=== PATIENT | male | born 1970 | race Two or more races ===

== ENCOUNTER 2024-04-06 12:11 | Observation (INO) | payer MEDICAID ==
[2024-04-06] MEDS ORDERED: Sodium Chloride 0.9% 10 ML Syringe FLUSH PRN (12:25)
[2024-04-06 12:35] LABS: BASOPHILS ABSOLUTE AUTO 0.02 10^3/uL (0.00-0.10); BASOPHILS PERCENT AUTO 0.4 % (0.0-1.0); EOSINOPHILS ABSOLUTE AUTO 0.01 10^3/uL (0.10-0.30); EOSINOPHILS PERCENT AUTO 0.2 % (1.0-3.0); HEMOGLOBIN 12.9 g/dL (13.0-17.0); IMMATURE GRAN ABSOLUTE AUTO 0.01 10^3/uL (0.00-0.50); IMMATURE GRAN PERCENT AUTO 0.2 % (0.0-5.0); LYMPHOCYTES ABSOLUTE AUTO 0.74 10^3/uL (1.00-4.00); LYMPHOCYTES PERCENT AUTO 15.6 % (20.0-40.0); MEAN CORPUSCULAR HEMOGLOBIN 24.1 pg (27.0-31.0); MEAN CORPUSCULAR HGB CONC 31.5 g/dL (32.0-36.0); MEAN CORPUSCULAR VOLUME 76.6 fL (82.0-92.0); MEAN PLATELET VOLUME 8.1 fL (7.4-10.4); MONOCYTES ABSOLUTE AUTO 0.42 10^3/uL (0.10-0.80); MONOCYTES PERCENT AUTO 8.8 % (2.0-8.0); NEUTROPHILS ABSOLUTE AUTO 3.55 10^3/uL (2.50-7.00); NEUTROPHILS PERCENT AUTO 74.8 % (50.0-70.0); PLATELET COUNT,PLT 152 10^3/uL (150-400); RED BLOOD CELL COUNT 5.35 10^6/uL (4.50-6.00); WHITE BLOOD CELL COUNT,WBC 4.75 10^3/uL (5.00-10.00)
[2024-04-06] MEDS: Sodium Chloride 0.9% 1,000 ML IV ONE (12:45)
[2024-04-06 12:58] LABS: ALANINE AMINOTRANSFERASE,ALT 48 U/L (14-63); ALBUMIN 3.29 g/dL (3.40-5.00); ALKALINE PHOSPHATASE 136 U/L (46-116); ANION GAP 13.7 mmol/L (5-15); ASPARTATE AMNIOTRANSFERASE,AST 68 U/L (15-37); BILIRUBIN TOTAL 1.4 mg/dL (0.2-1.0); BLOOD UREA NITROGEN,BUN 2 mg/dL (7-18); CALCIUM 8.6 mg/dL (8.7-10.3); CARBON DIOXIDE,CO2 25.7 mmol/L (21.0-32.0); CHLORIDE,CL 90 mmol/L (98-107); CREATININE 0.74 mg/dL (0.51-1.17); ESTIMATED GFR 108 mL/min (>=60); ETHANOL BLOOD MEDICAL < 3 mg/dL (NOT DETECTED); GLUCOSE RANDOM 125 mg/dL (70-140); POTASSIUM,K 3.4 mmol/L (3.5-5.1); PROTEIN TOTAL,TP 8.5 g/dL (6.4-8.2); SODIUM,NA 126 mmol/L (136-145)
[2024-04-06] MEDS: LORazepam 2 MG/ML SDV IVPUSH ONE (13:40)
[2024-04-06] MEDS: Enalaprilat 1.25 MG/ML SDV IVPUSH ONE (14:55)
[2024-04-06 15:34] LABS: APPEARANCE,URINE CLEAR (CLEAR); BILIRUBIN,URINE NEGATIVE (NEGATIVE); COLOR,URINE YELLOW (YELLOW); GLUCOSE,URINE NEGATIVE (NEGATIVE); KETONES,URINE NEGATIVE (NEGATIVE); LEUKOCYTE ESTERASE,URINE NEGATIVE (NEGATIVE); NITRITE,URINE NEGATIVE (NEGATIVE); OCCULT BLOOD,URINE SMALL (NEGATIVE); PH,URINE 6.5 (5.0-9.0); PROTEIN,URINE 100 mg/dL (NEGATIVE)
[2024-04-06 15:42] LABS: BACTERIA,URINE RARE /HPF (NONE TO FEW); EPITHELIAL CELLS,URINE RARE /LPF; RBC,URINE 0-5 /HPF (0-5); WBC,URINE 0-5 /HPF (0-5)
[2024-04-06 15:45] LABS: AMPHETAMINES SCREEN, URINE NEGATIVE (NEGATIVE); BENZODIAZEPINES SCREEN,URINE POSITIVE (NEGATIVE); COCAINE METABOLITES,URINE POSITIVE (NEGATIVE); METHAMPHETAMINES SCREEN, URINE NEGATIVE (NEGATIVE); PCP SCREEN,URINE NEGATIVE (NEGATIVE); THC SCREEN,URINE 50 NG/ML POSITIVE (NEGATIVE)
[2024-04-06 15:46] LABS: BARBITURATE SCREEN,URINE NEGATIVE (NEGATIVE); METHADONE SCREEN, URINE NEGATIVE (NEGATIVE); OXYCODONE SCREEN,URINE NEGATIVE (NEGATIVE); TCA SCREEN,URINE NEGATIVE (NEGATIVE)
[2024-04-06 16:52] LABS: LACTIC ACID 1.2 mmol/L (0.4-2.0)
[2024-04-06] MEDS ORDERED: RIFAXIMIN 200 MG PO SCH (17:00)
[2024-04-06] MEDS ORDERED: Ondansetron 4 MG/2 ML SDV IV PRN (17:13)
[2024-04-06] MEDS ORDERED: Acetaminophen 325 MG Tab PO PRN (17:13)
[2024-04-06] MEDS: Sodium Chloride 0.9% 1,000 ML IV SCH (18:39)
[2024-04-06] MEDS: Diazepam 5 MG Tab PO SCH (18:39)
[2024-04-06] MEDS ORDERED: RIFAXIMIN PO SCH (21:00)
[2024-04-06] MEDS: Carvedilol 6.25 MG Tab PO SCH (21:34)
[2024-04-06] MEDS: Thiamine 100 MG Tab PO SCH (21:34)
[2024-04-06] MEDS: Lactulose Soln 10 GM/15 ML 30 ML UD Cup PO SCH (21:53)
[2024-04-07 07:14] LABS: HEMATOCRIT 35.2 % (40.0-52.0); HEMOGLOBIN 10.8 g/dL (13.0-17.0); MEAN CORPUSCULAR HEMOGLOBIN 24.2 pg (27.0-31.0); MEAN CORPUSCULAR HGB CONC 30.7 g/dL (32.0-36.0); MEAN CORPUSCULAR VOLUME 78.9 fL (82.0-92.0); MEAN PLATELET VOLUME 8.7 fL (7.4-10.4); PLATELET COUNT,PLT 144 10^3/uL (150-400); RED BLOOD CELL COUNT 4.46 10^6/uL (4.50-6.00); RED CELL DISTRIBUTION WIDTH 17.4 % (11.5-14.5); WHITE BLOOD CELL COUNT,WBC 4.91 10^3/uL (5.00-10.00)
[2024-04-07 07:41] LABS: ALBUMIN 2.61 g/dL (3.40-5.00); BILIRUBIN TOTAL 1.2 mg/dL (0.2-1.0); CALCIUM 8.1 mg/dL (8.7-10.3); CARBON DIOXIDE,CO2 26.8 mmol/L (21.0-32.0); CREATININE 0.74 mg/dL (0.51-1.17); EST CRCL DRUG DOSING (CG) 111.69 mL/min; POTASSIUM,K 2.8 mmol/L (3.5-5.1); PROTEIN TOTAL,TP 6.8 g/dL (6.4-8.2)
[2024-04-07] MEDS: Levothyroxine 25 MCG Tab PO SCH (07:44)
[2024-04-07] MEDS: Spironolactone 25 MG Tab PO SCH (07:46)
[2024-04-07] MEDS ORDERED: Diazepam 5 MG Tab PO SCH (18:30)
[2024-04-09] MEDS ORDERED: Diazepam 5 MG Tab PO SCH (21:00)
== END 2024-04-07 12:53 | disposition home or self-care (01) ==
LOC: KA.ED 12:11 → KA.MS 14:01 → UNDOADMIN 14:01
PROVIDERS: ADMIT Internal Medicine; ATTEND Internal Medicine
DX: R56.9 Unspecified convulsions (principal); F10.10 Alcohol abuse, uncomplicated; K70.9 Alcoholic liver disease, unspecified; I10 Essential (primary) hypertension; E86.0 Dehydration; E87.1 Hypo-osmolality and hyponatremia; F17.210 Nicotine dependence, cigarettes, uncomplicated; Z79.899 Other long term (current) drug therapy; Z79.890 Hormone replacement therapy
CPT/HCPCS: 36415; 70450; 71045; 80053; 80305-QW; 80307; 81001; 82140; 83605; 84484; 85025; 85027; 96361; 96374; 99285-25; A9270-GY; G0378; J2060; J7030; Q3014

== ENCOUNTER 2024-06-18 01:26 | Emergency (ER) | payer MEDICAID ==
[2024-06-18] MEDS ORDERED: Sodium Chloride 0.9% 10 ML Syringe FLUSH PRN ×2 (01:30→02:42)
[2024-06-18 01:36] LABS: BASOPHILS ABSOLUTE AUTO 0.03 10^3/uL (0.00-0.10); BASOPHILS PERCENT AUTO 0.2 % (0.0-1.0); EOSINOPHILS ABSOLUTE AUTO 0.18 10^3/uL (0.10-0.30); EOSINOPHILS PERCENT AUTO 1.5 % (1.0-3.0); HEMATOCRIT 42.3 % (40.0-52.0); IMMATURE GRAN ABSOLUTE AUTO 0.05 10^3/uL (0.00-0.50); IMMATURE GRAN PERCENT AUTO 0.4 % (0.0-5.0); LYMPHOCYTES ABSOLUTE AUTO 2.33 10^3/uL (1.00-4.00); LYMPHOCYTES PERCENT AUTO 19.2 % (20.0-40.0); MEAN CORPUSCULAR HEMOGLOBIN 22.9 pg (27.0-31.0); MEAN CORPUSCULAR HGB CONC 30.7 g/dL (32.0-36.0); MEAN CORPUSCULAR VOLUME 74.6 fL (82.0-92.0); MEAN PLATELET VOLUME 7.7 fL (7.4-10.4); MONOCYTES ABSOLUTE AUTO 0.84 10^3/uL (0.10-0.80); MONOCYTES PERCENT AUTO 6.9 % (2.0-8.0); NEUTROPHILS ABSOLUTE AUTO 8.71 10^3/uL (2.50-7.00); NEUTROPHILS PERCENT AUTO 71.8 % (50.0-70.0); PLATELET COUNT,PLT 194 10^3/uL (150-400); RED BLOOD CELL COUNT 5.67 10^6/uL (4.50-6.00); RED CELL DISTRIBUTION WIDTH 17.5 % (11.5-14.5); WHITE BLOOD CELL COUNT,WBC 12.14 10^3/uL (5.00-10.00)
[2024-06-18] MEDS: Ondansetron 4 MG/2 ML SDV IVPUSH ONE (01:41)
[2024-06-18] MEDS ORDERED: Naloxone 0.4 MG/ML SDV IVPUSH PRN (01:43)
[2024-06-18] MEDS: Sodium Chloride 0.9% 1,000 ML IV ONE (01:43)
[2024-06-18] MEDS: HYDROmorphone 1 MG/ML Syringe IVPUSH ONE (01:48)
[2024-06-18 02:03] LABS: ALANINE AMINOTRANSFERASE,ALT 38 U/L (14-63); ALKALINE PHOSPHATASE 109 U/L (46-116); AMYLASE 70 U/L (25-125); ANION GAP 16.3 mmol/L (5-15); ASPARTATE AMNIOTRANSFERASE,AST 49 U/L (15-37); BILIRUBIN TOTAL 0.9 mg/dL (0.2-1.0); BLOOD UREA NITROGEN,BUN 3 mg/dL (7-18); CALCIUM 9.3 mg/dL (8.7-10.3); CARBON DIOXIDE,CO2 26.3 mmol/L (21.0-32.0); CREATININE 0.75 mg/dL (0.51-1.17); GLUCOSE RANDOM 125 mg/dL (70-140); LIPASE 54 U/L (16-77); MAGNESIUM 1.4 mg/dL (1.8-2.4); POTASSIUM,K 3.6 mmol/L (3.5-5.1); PROTEIN TOTAL,TP 8.7 g/dL (6.4-8.2); SODIUM,NA 127 mmol/L (136-145)
[2024-06-18 02:16] LABS: CHLORIDE,CL 88 mmol/L (98-107); ESTIMATED GFR 108 mL/min (>=60); ETHANOL BLOOD MEDICAL < 3 mg/dL (<3)
[2024-06-18] MEDS: Sodium Chloride 3% 100 ML IV ONE (02:35)
[2024-06-18] MEDS: Midazolam 1 MG/ML 2 ML SDV IVPUSH ONE (02:48)
[2024-06-18] MEDS: levETIRAcetam in NaCl (iso-os) 500 MG in Premix Bag 1 BAG IV ONE (02:56)
[2024-06-18 03:11] LABS: APPEARANCE,URINE SLIGHTLY CLOUDY (CLEAR); BILIRUBIN,URINE NEGATIVE (NEGATIVE); COLOR,URINE YELLOW (YELLOW); GLUCOSE,URINE NEGATIVE (NEGATIVE); KETONES,URINE 15 mg/dL (NEGATIVE); LEUKOCYTE ESTERASE,URINE NEGATIVE (NEGATIVE); NITRITE,URINE NEGATIVE (NEGATIVE); OCCULT BLOOD,URINE LARGE (NEGATIVE); PROTEIN,URINE >=300 mg/dL (NEGATIVE); UROBILINOGEN,URINE 0.2 E.U./dL (0.2-1.0)
[2024-06-18 03:13] LABS: AMORPHOUS SEDIMENT,URINE RARE /HPF (0/HPF); BACTERIA,URINE FEW /HPF (NONE TO FEW); EPITHELIAL CELLS,URINE FEW /LPF; MUCUS,URINE RARE /LPF (NEGATIVE); WBC,URINE 0-5 /HPF (0-5)
[2024-06-18] MEDS: Magnesium Sulfate/Water Premix 2 GM in Premix Bag 1 BAG IV ONE (03:20)
[2024-06-18 03:58] LABS: BLOOD UREA NITROGEN,BUN 7 mg/dL (7-18); CALCIUM 8.8 mg/dL (8.7-10.3); CARBON DIOXIDE,CO2 26.7 mmol/L (21.0-32.0); CREATININE 0.73 mg/dL (0.51-1.17); GLUCOSE RANDOM 116 mg/dL (70-140); POTASSIUM,K 3.2 mmol/L (3.5-5.1)
[2024-06-18 03:59] LABS: ESTIMATED GFR 109 mL/min (>=60)
[2024-06-18 04:02] LABS: ANION GAP 13.5 mmol/L (5-15); CHLORIDE,CL 92 mmol/L (98-107); SODIUM,NA 129 mmol/L (136-145)
== END 2024-06-18 04:25 ==
LOC: KA.ED 01:26
DX: S32.010A Wedge compression fracture of first lumbar vertebra, initial encounter for closed fracture (principal); G40.909 Epilepsy, unspecified, not intractable, without status epilepticus; R74.02 Elevation of levels of lactic acid dehydrogenase [LDH]; I10 Essential (primary) hypertension; E83.42 Hypomagnesemia; E87.1 Hypo-osmolality and hyponatremia; E87.8 Other disorders of electrolyte and fluid balance, not elsewhere classified; Z79.899 Other long term (current) drug therapy; Z79.890 Hormone replacement therapy; W01.0XXA Fall on same level from slipping, tripping and stumbling without subsequent striking against object, initial encounter
CPT/HCPCS: 36415; 51702; 70450; 71045; 72131; 80048; 80053; 80307; 81001; 82140; 82150; 83605; 83690; 83735; 84484; 85025; 93005; 93010; 96361; 96365; 96375; 99284; 99285-25; J1171; J1953; J2250; J2405; J3475; J7030; J7040